=== PATIENT | female | born 1975 | race Two or more races ===

== ENCOUNTER 2022-04-29 16:05 | Emergency (ER) | payer OTHER ==
[~2022-04-29] VITALS: Ht 177.8 cm; Wt 87.5 kg
== END 2022-04-29 21:36 | disposition home or self-care (01) ==
LOC: ER 16:05
DX: L55.0 Sunburn of first degree (principal)

== ENCOUNTER 2022-05-05 18:13 | Emergency (ER) | payer OTHER ==
[~2022-05-05] VITALS: Ht 177.8 cm; Wt 87.5 kg
[2022-05-05] MEDS ORDERED: [UNRECOGNIZED DRUG - OTHER] PO (18:27)
== END 2022-05-05 21:43 | disposition home or self-care (01) ==
LOC: ER 18:13
DX: L55.1 Sunburn of second degree (principal)